=== PATIENT | female | born 1995 | race Asian ===

== ENCOUNTER 2018-11-28 12:01 | Inpatient (IN) | payer MEDICAID ==
[~2018-11-28] VITALS: Ht 149.9 cm; Wt 56.7 kg
[2018-11-28] MEDS ORDERED: ZOLPIDEM TARTRATE 10 MG TABLET PO PRN (17:15)
[2018-11-28] MEDS ORDERED: HALOPERIDOL 5 MG TABLET PO PRN (17:15)
[2018-11-28] MEDS ORDERED: LORazepam 2 MG TABLET PO PRN (17:15)
[2018-11-28 17:55] VITALS: BP 122/91
[2018-11-28] MEDS ORDERED: PETROLATUM,WHITE 71 GM JELLY TP PRN (18:45)
[2018-11-28] MEDS ORDERED: MAGNESIUM HYDROXIDE SUSPENSION 30 ML UDCUP PO PRN (18:45)
[2018-11-28] MEDS ORDERED: ALBUTEROL SULFATE HFA 90 MCG/PUFF 8 GM INHALER IH PRN (18:45)
[2018-11-28] MEDS ORDERED: GuaiFENesin/D-METHORPHAN [SUGAR-FREE] 200-20MG/10 ML SYRUP UDCUP PO PRN (18:45)
[2018-11-28] MEDS ORDERED: DOCUSATE SODIUM 100 MG CAPSULE PO PRN (18:45)
[2018-11-28] MEDS ORDERED: MAG HYDROX/AL HYDROX/SIMETH ES 30 ML SUSPENSION UDCUP PO PRN (18:45)
[2018-11-28] MEDS ORDERED: LOPERAMIDE HCL 2 MG CAPSULE PO PRN (18:45)
[2018-11-28] MEDS ORDERED: ACETAMINOPHEN 325 MG TABLET PO PRN (18:45)
[2018-11-28] MEDS ORDERED: ONDANSETRON HCL 4 MG TABLET PO PRN (18:45)
[2018-11-28] MEDS ORDERED: NICOTINE 14 MG/24 HOUR PATCH TD PRN (18:45)
[2018-11-28] MEDS ORDERED: IBUPROFEN 400 MG TABLET PO PRN (18:45)
[2018-11-28] MEDS ORDERED: CloNIDine HCL 0.1 MG TABLET PO PRN (18:45)
[2018-11-28] MEDS ORDERED: SERT100T12 PO (19:21)
[2018-11-28] MEDS ORDERED: *NON-FORMULARY MED [ENTER DRUG, DOSE, FREQ IN COMMENTS] CLINICAL ONE (21:00)
[2018-11-29 04:21] VITALS: BP 116/80
[2018-11-29 08:16] VITALS: BP 116/63
[2018-11-29 08:32] LABS: BASOPHILS % (AUTO) 0.3 % (0.0-2.0); HEMATOCRIT 42.2 % (36-46); HEMOGLOBIN 13.7 g/dL (12.0-16.0); LYMPHOCYTES # (AUTO) 1.7 K/uL (1.0-4.8); LYMPHOCYTES % (AUTO) 31.2 % (22.0-44.0); MEAN CORPUSCULAR HEMOGLOBIN 27.4 pg (26.0-34.0); MEAN CORPUSCULAR HGB CONC 32.4 G/dL (31.0-37.0); MEAN CORPUSCULAR VOLUME 85 fL (80-100); MONOCYTES # (AUTO) 0.4 K/uL (0.1-1.0); MONOCYTES % (AUTO) 7.7 % (2.0-9.0); NEUTROPHILS # (AUTO) 3.3 K/uL (1.8-7.7); NEUTROPHILS % (AUTO) 59.8 % (40.0-70.0); PLATELET COUNT (AUTO) 327 K/uL (150-450); RED BLOOD CELL COUNT(AUTO) 4.99 MIL/uL (4.00-5.20); RED CELL DISTRIBUTION WIDTH 13.8 % (11.5-14.5)
[2018-11-29 08:48] LABS: HEMOGLOBIN A1C 5.8 % (4.5-6.2)
[2018-11-29 08:57] LABS: ALANINE AMINOTRANSFERASE 20 U/L (12-78); ALBUMIN 3.6 g/dL (3.4-5.0); ALKALINE PHOSPHATASE 53 U/L (46-116); ANION GAP 9 mmol/L (8-16); ASPARTATE AMINOTRANSFERASE 17 U/L (15-37); BILIRUBIN,TOTAL 0.5 mg/dL (0.1-1.0); CALCIUM, TOTAL 8.9 mg/dL (8.8-10.5); CARBON DIOXIDE 27 mmol/L (22-29); CHLORIDE 102 mmol/L (98-107); CHOL/HDL RATIO 2.5 (3.9-5.7); CHOLESTEROL 150 mg/dL (131-200); CREATININE 0.73 mg/dL (0.60-1.30); FREE T4 (FREE THYROXINE) 1.03 ng/dL (0.76-1.46); GLOMERULAR FILTR. RATE CALC > 60 mL/min (>60); GLUCOSE,RANDOM 74 mg/dL (70-110); HCG,QUANTITATIVE < 1 mIU/mL (0-6); HDL CHOLESTEROL 60 mg/dL (40-60); LDL CHOL (CALC.) 78 mg/dL (0-130); SODIUM SERUM 138 mmol/L (136-145); THYROID STIMULATING HORMONE 3.48 uIU/mL (0.36-3.74); TOTAL PROTEIN, SERUM 7.9 g/dL (6.4-8.2); TRIGLYCERIDES 59 mg/dL (15-150); UREA NITROGEN, BLOOD 14 mg/dL (7-18)
[2018-11-29] MEDS ORDERED: BLISOVI FE PO SCH (09:00)
[2018-11-29 15:55] VITALS: BP 116/88
[2018-11-29 16:01] VITALS: BP 116/88
[2018-11-29] MEDS: SERTRALINE HCL 100 MG TABLET PO SCH (20:32)
[2018-11-30 07:10] VITALS: BP 120/78
[2018-11-30 08:12] VITALS: BP 123/84
[2018-11-30] MEDS ORDERED: BLISOVI FE PO SCH (09:00)
[2018-11-30 16:06] VITALS: BP 126/88
[2018-11-30] MEDS: SERTRALINE HCL 100 MG TABLET PO SCH (20:22)
[2018-11-30] MEDS ORDERED: ETHINYL ESTRADIOL PO SCH (21:00)
[2018-11-30] MEDS ORDERED: FERROUS FUMARATE PO SCH (21:00)
[2018-11-30] MEDS ORDERED: NORETHINDRONE ACETATE PO SCH (21:00)
[2018-12-01 06:03] VITALS: BP 122/80
[2018-12-01 08:21] VITALS: BP 125/89
[2018-12-01] MEDS ORDERED: BACITRACIN 28.4 GM OINTMENT TP SCH (09:00)
[2018-12-01] MEDS ORDERED: SERT100T12 PO (09:30)
[2018-12-01] MEDS ORDERED: [UNRECOGNIZED DRUG - CODE] PO (09:48)
== END 2018-12-01 12:05 | disposition home or self-care (01) | DRG 751 ==
LOC: B2S 17:20
DX: F33.2 Major depressive disorder, recurrent severe without psychotic features (principal); R45.851 Suicidal ideations; F40.11 Social phobia, generalized; S61.519A Laceration without foreign body of unspecified wrist, initial encounter; X78.9XXA Intentional self-harm by unspecified sharp object, initial encounter; R00.0 Tachycardia, unspecified; Z79.899 Other long term (current) drug therapy; Z91.5 Personal history of self-harm; Z72.89 Other problems related to lifestyle; Y93.89 Activity, other specified; Y92.89 Other specified places as the place of occurrence of the external cause; Y99.8 Other external cause status
CPT/HCPCS: 83036; 84439; 84443